=== PATIENT | male | born 1960 ===

== ENCOUNTER 2017-11-21 00:25 | Emergency (ER) | payer OTHER ==
[2017-11-21] MEDS ORDERED: Sodium Chloride 0.9% 1,000 ML IV STA (01:29)
[2017-11-21 01:50] LABS: SQUAMOUS EPITHIAL < 1 /hpf (0-5); URINE BILIRUBIN NEGATIVE (NEGATIVE); URINE BLOOD NEGATIVE (NEGATIVE); URINE CLARITY SLIGHTY-CLOUDY (Clear); URINE COLOR BLUE (YELLOW); URINE GLUCOSE (UA) NEG (Normal); URINE LEUKOCYTE ESTERASE NEG Leu/uL (Negative); URINE PROTEIN NEGATIVE (NEGATIVE); URINE UROBILINOGEN 0.2-1.0 mg/dL (0.2-1.0)
[2017-11-21 01:54] LABS: BASO % 0.8 % (0.0-2.0); EOS # 0.2 K/uL (0.0-0.7); EOS % 3.8 % (0.0-4.0); HEMOGLOBIN 14.1 g/dL (12.0-18.0); LYMPH # 1.4 K/uL (1.0-4.3); LYMPH % 28.8 % (20.0-40.0); MEAN CELL VOLUME 87.8 fl (80.0-94.0); MEAN CORPUSCULAR HEMOGLOBIN 30.3 pg (27.0-31.0); MEAN CORPUSCULAR HGB CONC 34.5 g/dL (33.0-37.0); MEAN PLATELET VOLUME 9.7 fl (7.2-11.7); MONO # 0.4 K/uL (0.0-0.8); MONO % 7.5 % (0.0-10.0); NEUT # 2.9 K/uL (1.8-7.0); NEUT % 59.1 % (50.0-75.0); NRBC % 0.2 % (0.0-0.0); RBC 4.65 Mil/uL (4.40-5.90); RED CELL DISTRIBUTION WIDTH 13.8 % (11.5-14.5)
[2017-11-21 02:03] LABS: ALB/GLOB RATIO 1.2 (1.0-2.1); ALBUMIN 4.1 g/dL (3.5-5.0); CALCIUM 9.1 mg/dL (8.4-10.2); GFR AFRICAN-AMERICAN > 60; GFR NON-AFRICAN AMERICAN > 60; LIPASE 66 U/L (23-300)
[2017-11-21 02:26] LABS: ALT/SGPT 31 U/L (21-72); AST/SGOT 31 U/L (17-59); BLOOD UREA NITROGEN 27 mg/dl (9-20)
--- NOTE | 2017-11-21 02:48 | ED PDOC ---
"HPI: Male Pain Time Seen by Provider: 11/21/17 00:54 Chief Complaint (Nursing): Male Genitourinary Chief Complaint (Provider): Male Genitourinary History Per: Patient History/Exam Limitations: no limitations Onset/Duration Of Symptoms: Days (x7) Current Symptoms Are (Timing): Still Present Associated Symptoms: Back Pain, Urinary Symptoms. denies: Nausea, Vomiting Additional Complaint(s): Michele Mon is a 57 year old male with a past medical history of hypertension and prostate problems who is presenting to the ED with complaints of difficulty passing urine and clots with hematuria in urine, onset one week ago. Patient states that symptoms have been worsening over the past week accompanied by decreased flow, penile pain and back pain. He denies any fevers, nausea, or vomiting. Of note, patient reports that Dr. Rodríguez told him he had a minimally enlarged prostate. PMD: [facility] Past Medical History Reviewed: Historical Data, Nursing Documentation, Vital Signs Vital Signs: Last Vital Signs Temp 98 F 11/21/17 00:49 Pulse 68 11/21/17 00:49 Resp 18 11/21/17 00:49 BP 108/69 11/21/17 00:49 Pulse Ox 97 11/21/17 00:49 - Medical History PMH: HTN Other PMH: prostate problems - Surgical History Other surgeries: orthopedic surgery - Family History Family History: States: Unknown Family Hx - Social History Current smoker - smoking cessation education provided: No Alcohol: None Drugs: Denies - Home Medications Home Medications: Ambulatory Orders Medication Instructions Recorded Ciprofloxacin [Cipro] 500 mg PO BID 5 Days tab 11/21/17 Ibuprofen [Motrin Tab] 600 mg PO Q6 #30 tab 11/21/17 - Allergies Allergies/Adverse Reactions: Allergies Allergy/AdvReac Type Severity Reaction Status Date / Time No Known Allergies Allergy Verified 11/21/17 00:49 Review of Systems ROS Statement: Except As Marked, All Systems Reviewed And Found Negative Constitutional: Negative for: Fever Gastrointestinal: Negative for: Nausea, Vomiting Genitourinary Male: Positive for: Hematuria, Penile Pain, Other (difficulty passing urine, urine has clots with decreased flow) Musculoskeletal: Positive for: Back Pain Physical Exam - Reviewed Nursing Documentation Reviewed: Yes Vital Signs Reviewed: Yes - Physical Exam Appears: Positive for: Non-toxic, No Acute Distress Head Exam: Positive for: ATRAUMATIC, NORMAL INSPECTION, NORMOCEPHALIC Skin: Positive for: Normal Color, Warm, DRY Eye Exam: Positive for: EOMI, Normal appearance, PERRL ENT: Positive for: Normal ENT Inspection Neck: Positive for: Normal, Painless ROM Cardiovascular/Chest: Positive for: Regular Rate, Rhythm Respiratory: Positive for: CNT, Normal Breath Sounds Gastrointestinal/Abdominal: Positive for: Normal Exam, Soft. Negative for: Tenderness Male Genital Exam: Positive for: normal genitalia, other (penis tender at tip) Back: Positive for: Normal Inspection. Negative for: L CVA Tenderness, R CVA Tenderness, Vertebral Tenderness Extremity: Positive for: Normal ROM. Negative for: Deformity Neurologic/Psych: Positive for: Alert, Oriented. Negative for: Motor/Sensory Deficits - Laboratory Results Result Diagrams: 11/21/17 01:40 11/21/17 01:40 - ECG O2 Sat by Pulse Oximetry: 97 (RA) Pulse Ox Interpretation: Normal Medical Decision Making Medical Decision Making: Time: 1:29 57 year old male with history of high blood pressure and BPH presenting with hematuria and penile pain. --Kidney stone vs Urinary Tract Infection vs Prostate problem --Patient will have labs done along with CT. Will give Toradol for pain followed by reevaluation. 3:45 EXAM: CT Abdomen and Pelvis Without Intravenous Contrast CLINICAL HISTORY: 57 years old, male; Signs and symptoms; Other: Hematuria, back pain TECHNIQUE: Axial computed tomography images of the abdomen and pelvis without intravenous contrast. All CT scans at this facility use at least one of these dose optimization techniques: automated exposure control; mA and/or kV adjustment per patient size (includes targeted exams where dose is matched to clinical indication); or iterative reconstruction. 587 images are submitted. COMPARISON: No relevant prior studies available. FINDINGS: Lung bases: Unremarkable. No mass. No consolidation. Mediastinum: Small hiatal hernia. ABDOMEN: Liver: Hepatic calcification. Gallbladder and bile ducts: Partially distended gallbladder with artifact versus gallstones. Pancreas: Unremarkable. No ductal dilation. Spleen: Left upper quadrant splenule. Unremarkable spleen. Adrenals: Unremarkable. No mass. Kidneys and ureters: Right lower pole renal cyst. No obstructing stones. No hydronephrosis. Stomach and bowel: Diverticulosis. Nonspecific areas of colonic thickening likely due to under distention versus nonspecific colitis. There is stool like appearance to the distal small bowel. This may represent slow transit. PELVIS: Appendix: Normal appendix. Bladder: Urachal remnant.Partially decompressed bladder with bladder wall thickening. Correlation with urinalysis is recommended only if clinical cystitis is suspected. Reproductive: Enlarged prostate gland. ABDOMEN and PELVIS: Intraperitoneal space: Unremarkable. No free air. No significant fluid collection. Bones/joints: No acute fracture. No dislocation. Soft tissues: Bilateral inguinal herniation of fat. MICHELE MON | Preliminary Radiology Report JUNIOR COPYWRITER (QA) DISCREPANCY? If there is a discrepancy between the preliminary and final interpretation, please notify [email or web address] via [email or web address]. If you do not have access to our QA portal, call our QA team at [phone] CONFIDENTIALITY STATEMENT This report is intended only for the use of the referring physician, and only in accordance with law, If you received this in error, call [phone] Page 2 of 2 Vasculature: Unremarkable. No abdominal aortic aneurysm. Lymph nodes: Unremarkable. No enlarged lymph nodes. IMPRESSION: 1.Partially decompressed bladder with bladder wall thickening. Correlation with urinalysis is recommended only if clinical cystitis is suspected Patient is feeling much better. Able to urinate easier. Advised patient to followup with Dr. Rodríguez on Thursday. Will send urine culture and start on cipro. Scribe Attestation: Documented by, Valeria Hurd acting as a scribe for Baltazar Caballero MD. Provider Scribe Attestation: All medical record entries made by the Scribe were at my direction and personally dictated by me. I have reviewed the chart and agree that the record accurately reflects my personal performance of the history, physical exam, medical decision making, and the department course for this patient. I have also personally directed, reviewed, and agree with the discharge instructions and disposition. Disposition - Clinical Impression Clinical Impression: Urinary tract infection - Disposition Referrals: Josue Rodríguez MD [Medical Doctor] - Disposition: Routine/Home Disposition Time: 03:54 Condition: IMPROVED Prescriptions: Ciprofloxacin [Cipro] 500 mg PO BID 5 Days tab Ibuprofen [Motrin Tab] 600 mg PO Q6 #30 tab Instructions: Urinary Tract Infections in Adults Forms: [facility] (Kyrgyz) Print Language: UPPER SORBIAN"
[2017-11-21 04:12] VITALS: BP 123/71; PULSE 64; RESP 17; TEMP 98.2; O2SAT 98
--- NOTE | 2017-11-21 15:32 | CT ---
PROCEDURE: CT Abdomen and Pelvis without intravenous contrast HISTORY: hematuria, back pain COMPARISON: None. TECHNIQUE: Helical CT of the abdomen and pelvis was performed without oral or intravenous contrast as per referring physician request. Contrast dose: None Radiation dose: Total exam DLP = 377.55 mGy-cm. This CT exam was performed using one or more of the following dose reduction techniques: Automated exposure control, adjustment of the mA and/or kV according to patient size, and/or use of iterative reconstruction technique. FINDINGS: LOWER THORAX: Unremarkable. LIVER: Two punctate hepatic granulomata are identified calcified at the right lobe. No additional pertinent findings appreciable on this noncontrast examination. GALLBLADDER AND BILE DUCTS: Unremarkable. PANCREAS: Unremarkable. No gross lesion or ductal dilatation. SPLEEN: Unremarkable. ADRENALS: Unremarkable. No mass. KIDNEYS AND URETERS: A 2.6 x 2.7 cm lucency is seen exophytic off the lower pole right kidney measuring 8 Hounsfield units compatible with a cyst. No hydronephrosis. No definitive solid mass. No radiodense urolithiasis appreciable. VASCULATURE: Unremarkable. No aortic aneurysm. BOWEL: Unremarkable. No obstruction. No gross mural thickening. APPENDIX: Unremarkable. Normal appendix. PERITONEUM: Unremarkable. No free fluid. No free air. LYMPH NODES: Unremarkable. No enlarged lymph nodes. BLADDER: [id number] distention of the urinary bladder appreciated which is otherwise unremarkable appearing. REPRODUCTIVE: Enlarged prostate gland noted. BONES: No acute fracture. OTHER FINDINGS: None. IMPRESSION: No definite acute abdominal or pelvic CT findings appreciated in this noncontrast abdomen and pelvis CT examination, including obstructive uropathy or radiodense urolithiasis bilaterally. Right renal cyst. Two punctate calcified granulomata right lobe liver. Concordant preliminary report from [facility], 11/21/2017.
== END 2017-11-21 04:10 | disposition home or self-care (01) ==
LOC: H.ER 00:25
DX: N39.0 Urinary tract infection, site not specified (principal); I10 Essential (primary) hypertension
CPT/HCPCS: 74176; 80053; 81003; 83690; 85025; 87086; 96361; 96374; 99284; J1885; J7030